=== PATIENT | male | born 1970 | race Caucasian/White ===

== ENCOUNTER 2020-08-19 01:38 | Observation (INO) | payer SELFPAY ==
[~2020-08-19] VITALS: Ht 185.4 cm; Wt 122.4 kg
[2020-08-19] MEDS ORDERED: IV NORMAL SALINE 1000ML BAG 1,000 ML IV ONE (01:45)
[2020-08-19] MEDS ORDERED: KETOROLAC 30 MG/ML VIAL. IVP ONE (02:00)
--- NOTE | 2020-08-19 02:08 | PHYS DOC ---
General Adult EDM: Chief Complaint: ABDOMINAL PAIN HPI: HPI: Patient is a 50 year old male presents with the chief complaint of abdominal pain. Pain is located upper abdomen. Pains is associated nausea without vomiting. Onset of pain this afternoon--- continues without resolution. History of similiar pain in the past but has resolved. Review of Systems: Review of Systems: Constitutional: Denies fever or chills. [] Eyes: Denies change in visual acuity. [] HENT: Denies nasal congestion or sore throat. [] Respiratory: Denies cough or shortness of breath. [] Cardiovascular: Denies chest pain or edema. [] GI: positive abdominal pain, nausea, denies vomiting, bloody stools or diarrhea. [] : Denies dysuria. [] Musculoskeletal: Denies back pain or joint pain. [] Integument: Denies rash. [] Neurologic: Denies headache, focal weakness or sensory changes. [] Endocrine: Denies polyuria or polydipsia. [] Lymphatic: Denies swollen glands. [] Psychiatric: Denies depression or anxiety. [] Heart Score: C/O Chest Pain: N/A Risk Factors: Risk Factors: DM, Current or recent (<one month) smoker, HTN, HLP, family history of CAD, obesity. Risk Scores: Score 0 - 3: 2.5% MACE over next 6 weeks - Discharge Home Score 4 - 6: 20.3% MACE over next 6 weeks - Admit for Clinical Observation Score 7 - 10: 72.7% MACE over next 6 weeks - Early Invasive Strategies Current Medications: Current Medications Medications (Trade) Dose Ordered Sig/Duane Start Time Stop Time Status Last Admin Dose Admin Sodium Chloride 1,000 ml @ 1,000 mls/hr 1X ONCE 08/19/20 01:45 08/19/20 02:44 Allergies: Allergies: Allergies Coded Allergies Type Severity Reaction Last Updated Verified No Known Drug Allergies 08/19/20 No Physical Exam: PE: General: alert, no acute distress. Skin: warm, dry and intact. Head:: Normocephalic, atraumatic. Neck: Trachea midline. Eyes: EOMI, Normal conjunctiva, No drainage CARDIOVASCULAR: Regular rate and rhythm RESPIRATORY: No respiratory distress Back: Full range of motion. MUSCULOSKELETAL: Full range of motion of bilateral upper and lower extremities. GASTROINTESTINAL: Abdomen soft without rebound or guarding. Appears distended tenderness located upper quadrants NEUROLOGICAL: Alert and noted to person, place and time. No neurological deficits observed Psychiatric: Cooperative. Normal judgment EKG: EKG: [] Radiology/Procedures: Radiology/Procedures: [] Course & Med Decision Making: Course & Med Decision Making Pertinent Labs and Imaging studies reviewed. (See chart for details) [] Was evaluated for chief complaint. Work-up consisted of laboratory analysis and radiologic imaging. CT imaging cholelithiasis with gallbladder wall thickening. US ordered and pending. Pain treated with toradol -- improved. Started on zosyn. Admitted to hospitalist--- General Surgery Consult. Eduardo Disclaimer: Eduardo Disclaimer: This electronic medical record was generated, in whole or in part, using a voice recognition dictation system. Departure Departure Impression: Primary Impression: Abdominal pain Disposition: ADMITTED INPT THIS HOSP Condition: STABLE ERICACORDELL Tres BLOOM Aug 19, 2020 02:07
[2020-08-19 02:11] LABS: BASO # 0.1 x10^3/uL (0.0-0.2); BASO % 1 % (0-3); EOS # 0.2 x10^3/uL (0.0-0.7); EOS % 3 % (0-3); HEMATOCRIT 45.2 % (39.0-53.0); HEMOGLOBIN 15.5 g/dL (13.0-17.5); LYMPH # 2.4 x10^3/uL (1.0-4.8); LYMPH % 32 % (24-48); MEAN CORPUSCULAR HEMOGLOBIN 31 pg (25-35); MEAN CORPUSCULAR HGB CONC 34 g/dL (31-37); MEAN CORPUSCULAR VOLUME 91 fL (79-100); MONO # 0.6 x10^3/uL (0.0-1.1); MONO % 8 % (0-9); NEUT % 55 % (31-73); PLATELET COUNT 219 x10^3/uL (140-400); RED BLOOD COUNT 4.99 x10^6/uL (4.30-5.70); RED CELL DISTRIBUTION WIDTH 13.3 % (11.5-14.5); WHITE BLOOD COUNT 7.3 x10^3/uL (4.0-11.0)
[2020-08-19 02:22] LABS: CALCIUM 8.3 mg/dL (8.5-10.1); CREATININE 1.2 mg/dL (0.7-1.3); GFR 64.4; POTASSIUM 4.2 mmol/L (3.5-5.1)
[2020-08-19 02:28] LABS: ALBUMIN 3.3 g/dL (3.4-5.0); TOTAL BILIRUBIN 0.3 mg/dL (0.2-1.0); TOTAL PROTEIN 6.7 g/dL (6.4-8.2)
[2020-08-19] MEDS ORDERED: IOHEXOL 300 MG/ML 100ML VIAL. IV ONE (02:30)
[2020-08-19] MEDS ORDERED: CONTRAST GIVEN. MC PRN (02:30)
--- NOTE | 2020-08-19 03:20 | RAD ---
CT ABDOMEN+PELVIS W History: Reason: abd pain, omni 300, 75 ml iv / Spl. Instructions: / History: Technique: After the administration of intravenous contrast, CT imaging was performed of the abdomen and pelvis. Multiplanar images are reviewed. Exposure: One or more of the following individualized dose reduction techniques were utilized for thi s examination: 1. Automated exposure control 2. Adjustment of the mA and/or kV according to patient size 3. Use of iterative reconstruction technique. Comparison: July 24, 2009 Findings: Lower chest: No consolidation or pleural effusion. Abdomen and pelvis: The liver, spleen, adrenal glands, and pancreas are unremarkable. Normal appearan ce of the kidneys. No hydronephrosis. Normal appearance of the urinary bladder. Cholelithiasis. Mild gallbladder wall thickening. No biliary ductal dilatation. Patent portal veins. Normal appendix. No evidence of bowel obstruction. No pathologic lymphadenopathy. No ascites. Small b ilateral fat-containing inguinal hernias. Mild atheromatous plaque throughout the nonaneurysmal abdom inal aorta and branch vessels. Bones: Multilevel lumbar spondylosis most prominent L5-S1. Impression: 1. Cholelithiasis with mild gallbladder wall thickening. Recommend ultrasound to further evaluate. Electronically signed by: Royer Crane DO (08/19/2020 3:18 AM) [id number]
[2020-08-19] MEDS ORDERED: MORPHINE SULFATE 4 MG/ML VIAL. IV PRN ×2 (03:30→21:45)
[2020-08-19] MEDS ORDERED: ONDANSETRON PF 4 MG/2 ML VIAL. IV PRN (03:30)
[2020-08-19] MEDS ORDERED: PIPERACILLIN/TAZOBACTAM 4.5 GM in IV NORMAL SALINE 100ML 100 ML IV ONE (03:30)
[2020-08-19 04:35] VITALS: BP 140/97
--- NOTE | 2020-08-19 04:53 | RAD ---
US ABDOMEN LTD History: Reason: abnormal ct-- gb wall thickening / Spl. Instructions: / History: Comparison: None. Technique: Transabdominal ultrasound images are obtained of the right upper quadrant. Findings: Liver is increased in echogenicity. Right hepatic lobe measures 18.1 cm. Portal flow is hepatopedal. Cholelithiasis. Gallbladder wall thickening measures 6.7 mm. Mild pericholecystic fluid. Positive son ographic Fagan sign. Common bile duct measures 6.9 mm in diameter. Visualized pancreas not well seen due to overlying bowel gas. The right kidney measures 10.8 x 5.8 x 4.8 cm. No hydronephrosis. Visualized portions of the aorta and IVC have normal caliber. IMPRESSION: 1. Findings concerning for acute cholecystitis. 2. Hepatomegaly with increased echotexture, may indicate steatosis. Electronically signed by: Royer Crane DO (08/19/2020 4:50 AM) [id number]
[2020-08-19 07:00] VITALS: BP 139/99
[2020-08-19] MEDS ORDERED: DEXTROSE 50% 25 GM / 50ML DISP.SYRIN. IV PRN (10:00)
--- NOTE | 2020-08-19 10:33 | NUR ---
SW following. Discussed with RN, pt from home with friend, room air, NPO, rapid COVID-19 negative. Surgery consulted. Med Assist following for self pay status. SW will continue to follow.
[2020-08-19 11:00] VITALS: BP 139/103
--- NOTE | 2020-08-19 11:21 | PDOC2 ---
COREY JENKINS NET DEVELOPER 08/19/20 1121: CONSULT Date of Consult Date of Consult DATE: 08/19/20 TIME: 11:17 Reason for Consult Reason for Consult: cholecystitis Referring Physician Referring Physician: ER Identification/Chief Complaint Chief Complaint abdominal pain Source Source: Chart review, Patient History of Present Illness Reason for Visit: acute onset abdominal pain to upper abdomen yesterday, associated nausea, has happened before, however resolved then. No aggravating factors Currently without pain no constipation or diarrhea Past Medical History Past Medical History denies Past Surgical History Past Surgical History: No pertinent history Family History Family History: Other (noncontributory to current illness ) Social History 1 pack per day ALCOHOL: none Drugs: None Lives: with Family Current Problem List Problem List Problems Medical Problems: (1) Abdominal pain Status: Acute Current Medications Current Medications Current Medications Sodium Chloride 1,000 ml @ 1,000 mls/hr 1X ONCE IV Last administered on 08/19/20at 02:09; Start 08/19/20 at 01:45; Stop 08/19/20 at 02:44; Status DC Ketorolac Tromethamine (Toradol 30mg Vial) 30 mg 1X ONCE IVP Last administered on 08/19/20at 02:10; Start 08/19/20 at 02:00; Stop 08/19/20 at 02:02; Status DC Iohexol (Omnipaque 300 Mg/ml) 75 ml 1X ONCE IV Last administered on 08/19/20at 02:39; Start 08/19/20 at 02:30; Stop 08/19/20 at 02:31; Status DC Info (CONTRAST GIVEN -- Rx MONITORING) 1 each PRN DAILY PRN MC SEE COMMENTS; Start 08/19/20 at 02:30; Stop 08/21/20 at 02:29 Piperacillin Sod/ Tazobactam Sod 4.5 gm/Sodium Chloride 100 ml @ 200 mls/hr 1X ONCE IV Last administered on 08/19/20at 03:41; Start 08/19/20 at 03:30; Stop 08/19/20 at 03:59; Status DC Ondansetron HCl (Zofran) 4 mg PRN Q8HRS PRN IV NAUSEA/VOMITING; Start 08/19/20 at 03:30; Stop 08/20/20 at 03:29 Morphine Sulfate (Morphine Sulfate) 4 mg PRN Q2HR PRN IV PAIN; Start 08/19/20 at 03:30; Stop 08/20/20 at 03:29 Insulin Human Lispro (HumaLOG) 0-5 UNITS TIDWMEALS SQ ; Start 08/19/20 at 12:00 Dextrose (Dextrose 50%-Water Syringe) 12.5 gm PRN Q15MIN PRN IV SEE COMMENTS; Start 08/19/20 at 10:00 Allergies Allergies: Coded Allergies: No Known Drug Allergies (Unverified , 08/19/20) ROS General: No: Chills, Other (fevers ) PSYCHOLOGICAL ROS: No: Anxiety, Depression Eyes: No Blurry vision, No Double vision HEENT: No: Heacaches, Sore Throat Hematological and Lymphatic: No: Bleeding Problems, Blood Clots Respiratory: No: Cough, Shortness of breath Cardiovascular: No Chest Pain, No Palpitations Gastrointestinal: Yes Other (see hpi) Genitourinary: No Dysuria, No Hematuria Musculoskeletal: No Joint Pain, No Muscle Pain Neurological: No Impaired Coord/balance, No Numbness/Tingling Skin: No Pruritus, No Rash Physical Exam General: Alert, Oriented X3, Cooperative HEENT: Atraumatic, PERRLA Lungs: Clear to auscultation Heart: Regular rate, Normal S1, Normal S2 Abdomen: Soft, No tenderness, No hepatosplenomegaly Extremities: No clubbing, No cyanosis Skin: No rashes, No breakdown Psych/Mental Status: Mental status NL, Mood NL MUSCULOSKELETAL: No deformity, No swelling Vitals VITALS Vital Signs Date Time Temp Pulse Resp B/P (MAP) Pulse Ox O2 Delivery O2 Flow Rate FiO2 08/19/20 11:00 97.4 73 18 139/103 (115) 92 Room Air 97.4 Labs Labs Laboratory Tests Test 08/19/20 02:00 08/19/20 03:45 08/19/20 09:44 White Blood Count 7.3 x10^3/uL (4.0-11.0) Red Blood Count 4.99 x10^6/uL (4.30-5.70) Hemoglobin 15.5 g/dL (13.0-17.5) Hematocrit 45.2 % (39.0-53.0) Mean Corpuscular Volume 91 fL (79-100) Mean Corpuscular Hemoglobin 31 pg (25-35) Mean Corpuscular Hemoglobin Concent 34 g/dL (31-37) Red Cell Distribution Width 13.3 % (11.5-14.5) Platelet Count 219 x10^3/uL (140-400) Neutrophils (%) (Auto) 55 % (31-73) Lymphocytes (%) (Auto) 32 % (24-48) Monocytes (%) (Auto) 8 % (0-9) Eosinophils (%) (Auto) 3 % (0-3) Basophils (%) (Auto) 1 % (0-3) Neutrophils # (Auto) 4.0 x10^3/uL (1.8-7.7) Lymphocytes # (Auto) 2.4 x10^3/uL (1.0-4.8) Monocytes # (Auto) 0.6 x10^3/uL (0.0-1.1) Eosinophils # (Auto) 0.2 x10^3/uL (0.0-0.7) Basophils # (Auto) 0.1 x10^3/uL (0.0-0.2) Sodium Level 136 mmol/L (136-145) Potassium Level 4.2 mmol/L (3.5-5.1) Chloride Level 99 mmol/L (98-107) Carbon Dioxide Level 26 mmol/L (21-32) Anion Gap 11 (6-14) Blood Urea Nitrogen 13 mg/dL (8-26) Creatinine 1.2 mg/dL (0.7-1.3) Estimated GFR (Cockcroft-Gault) 64.4 BUN/Creatinine Ratio 11 (6-20) Glucose Level 468 mg/dL (70-99) Calcium Level 8.3 mg/dL (8.5-10.1) Total Bilirubin 0.3 mg/dL (0.2-1.0) Aspartate Amino Transf (AST/SGOT) 23 U/L (15-37) Alanine Aminotransferase (ALT/SGPT) 40 U/L (16-63) Alkaline Phosphatase 149 U/L (46-116) Total Protein 6.7 g/dL (6.4-8.2) Albumin 3.3 g/dL (3.4-5.0) Albumin/Globulin Ratio 1.0 (1.0-1.7) Lipase 90 U/L (73-393) SARS-CoV-2 Antigen (Rapid) Negative (NEGATIVE) Glucose (Fingerstick) 257 mg/dL (70-99) Laboratory Tests Test 08/19/20 02:00 08/19/20 03:45 08/19/20 09:44 White Blood Count 7.3 x10^3/uL (4.0-11.0) Red Blood Count 4.99 x10^6/uL (4.30-5.70) Hemoglobin 15.5 g/dL (13.0-17.5) Hematocrit 45.2 % (39.0-53.0) Mean Corpuscular Volume 91 fL (79-100) Mean Corpuscular Hemoglobin 31 pg (25-35) Mean Corpuscular Hemoglobin Concent 34 g/dL (31-37) Red Cell Distribution Width 13.3 % (11.5-14.5) Platelet Count 219 x10^3/uL (140-400) Neutrophils (%) (Auto) 55 % (31-73) Lymphocytes (%) (Auto) 32 % (24-48) Monocytes (%) (Auto) 8 % (0-9) Eosinophils (%) (Auto) 3 % (0-3) Basophils (%) (Auto) 1 % (0-3) Neutrophils # (Auto) 4.0 x10^3/uL (1.8-7.7) Lymphocytes # (Auto) 2.4 x10^3/uL (1.0-4.8) Monocytes # (Auto) 0.6 x10^3/uL (0.0-1.1) Eosinophils # (Auto) 0.2 x10^3/uL (0.0-0.7) Basophils # (Auto) 0.1 x10^3/uL (0.0-0.2) Sodium Level 136 mmol/L (136-145) Potassium Level 4.2 mmol/L (3.5-5.1) Chloride Level 99 mmol/L (98-107) Carbon Dioxide Level 26 mmol/L (21-32) Anion Gap 11 (6-14) Blood Urea Nitrogen 13 mg/dL (8-26) Creatinine 1.2 mg/dL (0.7-1.3) Estimated GFR (Cockcroft-Gault) 64.4 BUN/Creatinine Ratio 11 (6-20) Glucose Level 468 mg/dL (70-99) Calcium Level 8.3 mg/dL (8.5-10.1) Total Bilirubin 0.3 mg/dL (0.2-1.0) Aspartate Amino Transf (AST/SGOT) 23 U/L (15-37) Alanine Aminotransferase (ALT/SGPT) 40 U/L (16-63) Alkaline Phosphatase 149 U/L (46-116) Total Protein 6.7 g/dL (6.4-8.2) Albumin 3.3 g/dL (3.4-5.0) Albumin/Globulin Ratio 1.0 (1.0-1.7) Lipase 90 U/L (73-393) SARS-CoV-2 Antigen (Rapid) Negative (NEGATIVE) Glucose (Fingerstick) 257 mg/dL (70-99) Assessment/Plan Assessment/Plan cholecystitis abx hyperglycemia--admission BS > 400 currently no pain, ok for clears needs BG management prior to planning OR ADELA DELAROSA MD 08/19/201921: CONSULT Assessment/Plan Assessment/Plan Pt seen and examined. Agree with Ms. Jenkins's note Pt currently without c/o abd soft, ND, NTTP no plans for cholecystectomy currently given pt severe FSBS. Will follow Thanks for consult! COREY JENKINS NET DEVELOPER Aug 19, 2020 11:21 ADELA DELAROSA MD Aug 19, 2020 19:22
[2020-08-19] MEDS: PIPERACILLIN/TAZOBACTAM 3.375 GM in IV NORMAL SALINE 50ML 50 ML IV SCH ×3 (12:03→23:32)
[2020-08-19] MEDS: INSULIN LISPRO 300 UNITS/3 ML VIAL. SQ SCH ×2 (12:07→17:51)
--- NOTE | 2020-08-19 14:08 | HP ---
ADMIT DATE: 08/19/2020 CHIEF COMPLAINT: Abdominal pain. HISTORY OF PRESENT ILLNESS: The patient is a pleasant middle-aged 50-year-old male who presented to the ER last night with abdominal pain. We did some imaging showing he has cholecystitis. He rates his pain at 9/10. He has associated nausea. It has been occurring for several days. He tried increasing his home meds, but that is not working. Interestingly, while he was in the ER, we noticed that his glucose is also 468. I suspect he has new-onset diabetes ____. We are going to consult Surgery, give him IV antibiotics and get his glucose under control. I discussed the case with nurse practitioner for General Surgery. They plan to operate tomorrow once his glucose is better. PAST MEDICAL HISTORY: Overweight. ALLERGIES: None. FAMILY HISTORY: Diabetes. SOCIAL HISTORY: He works in concrete. He does not drink, smoke or take drugs. MEDICATIONS: Reviewed, please refer to the MRAD. REVIEW OF SYSTEMS: GENERAL: No history of weight change, weakness or fevers. SKIN: No bruising, hair changes or rashes. EYES: No blurred, double or loss of vision. NOSE AND THROAT: No history of nosebleeds, hoarseness or sore throat. HEART: No history of palpitations, chest pain or shortness of breath on exertion. LUNGS: Denies cough, hemoptysis, wheezing or shortness of breath. GASTROINTESTINAL: Denies changes in appetite, nausea, vomiting, diarrhea or constipation. He complains of abdominal pain. GENITOURINARY: No history of frequency, urgency, hesitancy or nocturia. NEUROLOGIC: Denies history of numbness, tingling, tremor or weakness. PSYCHIATRIC: No history of panic, anxiety or depression. ENDOCRINE: No history of heat or cold intolerance, polyuria or polydipsia. EXTREMITIES: Denies muscle weakness, joint pain, pain on walking or stiffness. PHYSICAL EXAMINATION: VITALS: Within normal limits and are stable. GENERAL: No apparent distress. Alert and oriented. HEENT: Normal cephalic atraumatic, external auditory canals are patent. EYES: Extraocular muscles are intact, pupils are equally round and reactive to light and accommodation. MUSCULOSKELETAL: Well developed, well nourished, good range of motion. ENDOCRINE: No thyromegaly was palpated. LYMPHATICS: No cervical chain or axillary nodes were noted. HEMATOPOIETIC: No bruising. NECK: Supple, no JVD, no thyromegaly was noted. LUNGS: Clear to auscultation in all lung ledezma without rhonchi or wheezing. HEART: RRR, S1, S2 present. Peripheral pulses intact, no obvious murmurs were noted. ABDOMEN: Soft. He has decreased bowel sounds with tenderness in the upper quadrants. EXTREMITIES: Without any cyanosis, clubbing, or edema. Pedal pulses intact, Homans sign is negative. NEUROLOGIC: Normal speech, normal tone. A and O x 3, moves all extremities, no obvious focal deficits. PSYCHIATRIC: Normal affect, normal mood. Stable. SKIN: No ulcerations or rashes, good skin turgor, no jaundice. VASCULAR: Good capillary refill, neurovascular bundle appears to be intact. LABORATORY DATA: Electrolytes are normal. Glucose is 468. I gave him some sliding scale insulin, now is down to 251. Hematology is normal. Ultrasound shows cholecystitis and hepatic steatosis. ASSESSMENT AND PLAN: Cholecystitis and new-onset diabetes. The patient has been admitted. We will start him on sliding scale insulin, IV Zosyn. Consult General Surgery. He is going to Surgery tomorrow. IV fluids, home meds, DVT prophylaxis. Full code. Diabetic education. PROGNOSIS: Guarded. ANTONI CARRIZALES DO DR: MACIEL/tal JOB#: [id number] / [id number]
[2020-08-19 15:00] VITALS: BP 152/97
[2020-08-19] MEDS: NICOTINE 21MG PATCH. TD SCH (17:37)
[2020-08-19 19:00] VITALS: BP 155/107
[2020-08-19] MEDS ORDERED: hydrALAZINE 20 MG/ML VIAL. IVP PRN (21:45)
[2020-08-19] MEDS ORDERED: ONDANSETRON PF 4 MG/2 ML VIAL. IVP PRN (21:45)
[2020-08-19 23:00] VITALS: BP 162/97
[2020-08-20 03:00] VITALS: BP 127/79
[2020-08-20] MEDS: PIPERACILLIN/TAZOBACTAM 3.375 GM in IV NORMAL SALINE 50ML 50 ML IV SCH (06:09)
[2020-08-20 07:00] VITALS: BP 143/97
[2020-08-20] MEDS: INSULIN LISPRO 300 UNITS/3 ML VIAL. SQ SCH ×2 (08:11→11:57)
--- NOTE | 2020-08-20 08:58 | PDOC ---
COREY JENKINS ENDLESS STEAMER TENDER 08/20/20 0857: SURGICAL PROGRESS NOTE DATE: 08/20/20 TIME: 08:56 Subjective no pain tolerating liquids Vital Signs Vital Signs Date Time Temp Pulse Resp B/P (MAP) Pulse Ox O2 Delivery O2 Flow Rate FiO2 08/20/20 07:00 97.7 94 18 143/97 (112) 93 Room Air 97.7 I&O Intake and Output 08/20/20 07:00 Intake Total 530 ml Balance 530 ml Intake Oral 380 ml IV Total 150 ml # Voids 1 General: Alert, Oriented X3, Cooperative Abdomen: Soft, No tenderness Labs Laboratory Tests Test 08/19/20 02:00 08/19/20 03:45 08/19/20 09:44 08/19/20 11:25 White Blood Count 7.3 x10^3/uL (4.0-11.0) Red Blood Count 4.99 x10^6/uL (4.30-5.70) Hemoglobin 15.5 g/dL (13.0-17.5) Hematocrit 45.2 % (39.0-53.0) Mean Corpuscular Volume 91 fL (79-100) Mean Corpuscular Hemoglobin 31 pg (25-35) Mean Corpuscular Hemoglobin Concent 34 g/dL (31-37) Red Cell Distribution Width 13.3 % (11.5-14.5) Platelet Count 219 x10^3/uL (140-400) Neutrophils (%) (Auto) 55 % (31-73) Lymphocytes (%) (Auto) 32 % (24-48) Monocytes (%) (Auto) 8 % (0-9) Eosinophils (%) (Auto) 3 % (0-3) Basophils (%) (Auto) 1 % (0-3) Neutrophils # (Auto) 4.0 x10^3/uL (1.8-7.7) Lymphocytes # (Auto) 2.4 x10^3/uL (1.0-4.8) Monocytes # (Auto) 0.6 x10^3/uL (0.0-1.1) Eosinophils # (Auto) 0.2 x10^3/uL (0.0-0.7) Basophils # (Auto) 0.1 x10^3/uL (0.0-0.2) Sodium Level 136 mmol/L (136-145) Potassium Level 4.2 mmol/L (3.5-5.1) Chloride Level 99 mmol/L (98-107) Carbon Dioxide Level 26 mmol/L (21-32) Anion Gap 11 (6-14) Blood Urea Nitrogen 13 mg/dL (8-26) Creatinine 1.2 mg/dL (0.7-1.3) Estimated GFR (Cockcroft-Gault) 64.4 BUN/Creatinine Ratio 11 (6-20) Glucose Level 468 mg/dL (70-99) Calcium Level 8.3 mg/dL (8.5-10.1) Total Bilirubin 0.3 mg/dL (0.2-1.0) Aspartate Amino Transf (AST/SGOT) 23 U/L (15-37) Alanine Aminotransferase (ALT/SGPT) 40 U/L (16-63) Alkaline Phosphatase 149 U/L (46-116) Total Protein 6.7 g/dL (6.4-8.2) Albumin 3.3 g/dL (3.4-5.0) Albumin/Globulin Ratio 1.0 (1.0-1.7) Lipase 90 U/L (73-393) Coronavirus (PCR) Not detected (Not Detected) SARS-CoV-2 Antigen (Rapid) Negative (NEGATIVE) Glucose (Fingerstick) 257 mg/dL (70-99) 251 mg/dL (70-99) Test 08/19/20 17:37 08/19/20 20:00 08/20/20 07:09 Glucose (Fingerstick) 186 mg/dL (70-99) 165 mg/dL (70-99) 213 mg/dL (70-99) Laboratory Tests Test 08/19/20 09:44 08/19/20 11:25 08/19/20 17:37 08/19/20 20:00 Glucose (Fingerstick) 257 mg/dL (70-99) 251 mg/dL (70-99) 186 mg/dL (70-99) 165 mg/dL (70-99) Test 08/20/20 07:09 Glucose (Fingerstick) 213 mg/dL (70-99) Problem List Problems Medical Problems: (1) Abdominal pain Status: Acute Assessment/Plan needs better BS control prior to any surgery no pain will advance diet BS management per IPC Justicifation of Admission Dx: Justifications for Admission: Justification of Admission Dx: Yes Diabetic Urgency: Diabetic Urgency ADELA DELAROSA MD 08/20/20 1104: SURGICAL PROGRESS NOTE Assessment/Plan Pt seen and examined. Agree with Ms. Jenkins's note Pt currently denies c/o abd soft, ND, NTTP OK to d/c, f/u in office to consider cholecystectomy pending glucose control COREY JENKINS ENDLESS STEAMER TENDER Aug 20, 2020 08:57 ADELA DELAROSA MD Aug 20, 2020 11:04
[2020-08-20] MEDS: NICOTINE 21MG PATCH. TD SCH (09:24)
--- NOTE | 2020-08-20 09:41 | NUR ---
SW following. Discussed with RN, pt from home with friend, room air, NPO, COVID-19 negative. Pt needing better blood sugar control prior to any surgery. Med Assist following for self pay status. SW will continue to follow.
[2020-08-20 10:48] VITALS: BP 143/96
--- NOTE | 2020-08-20 11:41 | PDOC ---
[employer] PROGRESS NOTE Date of Service DOS: DATE: 08/20/20 TIME: 11:29 Chief Complaint Chief Complaint Abdominal pain History of Present Illness History of Present Illness 08/20 Patient seen and examined Discussed with patient and his mother new diagnosis of Type 2 diabetes and plan to manage Surgery saw patient and believes he is not an appropriate candidate for surgery due to his persistent hyperglycemia but is stable to discharge. Would like to follow-up outpatient to discuss possible cholecystectomy. Discussed with RN Discussed with Social Work Vitals/I&O Vitals/I&O: Vital Signs Date Time Temp Pulse Resp B/P (MAP) Pulse Ox O2 Delivery O2 Flow Rate FiO2 08/20/20 10:48 98.1 92 18 143/96 (112) 92 Room Air 98.1 I & O 08/19/20 08/19/20 08/20/20 15:00 23:00 07:00 Intake Total 0 ml 430 ml 100 ml Balance 0 ml 430 ml 100 ml Physical Exam General: Alert, Oriented X3, Cooperative Heart: Regular rate, Normal S1, Normal S2 Lungs: Clear, Other (No wheezes or crackles) Abdomen: Soft, No tenderness, Other (Obese) Extremities: No clubbing, No cyanosis Skin: No rashes, No breakdown Labs Labs: Laboratory Tests Test 08/19/20 17:37 08/19/20 20:00 08/20/20 07:09 Glucose (Fingerstick) 186 mg/dL (70-99) 165 mg/dL (70-99) 213 mg/dL (70-99) Review of Systems Review of Systems: Reports polyuria and polydipsia. Denies n/v, weakness Assessment and Plan Assessmemt and Plan Assessment Acute cholecystitis Type 2 Diabetes Plan Discharge to home Begin Novolog 5U TID AC Begin Lantus 10U QHS Accucheck with strips Follow-up outpatient with surgery Comment Review of Relevant I have reviewed the following items juliana (where applicable) has been applied. Medications: Current Medications Medications (Trade) Dose Ordered Sig/Duane Route PRN Reason Start Time Stop Time Status Last Admin Dose Admin Insulin Human Lispro (HumaLOG) 0-5 UNITS TIDWMEALS SQ 08/19/20 12:00 08/20/20 08:11 Piperacillin Sod/ Tazobactam Sod 3.375 gm/Sodium Chloride 50 ml @ 100 mls/hr Q6HRS IV 08/19/20 12:00 08/20/20 06:09 Nicotine (Nicoderm Cq 21mg) 1 patch DAILY TD 08/19/20 17:15 08/20/20 09:24 Hydralazine HCl (Apresoline Inj) 10 mg PRN Q4HRS PRN IVP ELEVATED BP, SEE COMMENTS 08/19/20 21:45 08/19/20 21:59 Justifications for Admission Other Justification ANTONI CARRIZALES III DO Aug 20, 2020 11:41
--- NOTE | 2020-08-20 12:02 | DS ---
DATE OF DISCHARGE: 08/20/2020 ADMISSION DIAGNOSES: Cholecystitis and new-onset diabetes. DISCHARGE DIAGNOSES: 1. Resolving cholecystitis. 2. New-onset diabetes and overweight. HOSPITAL COURSE: The patient is a pleasant middle-aged male, who presented with new-onset diabetes with glucose in the high 400s and also had some cholecystitis. His initial complaint was abdominal pain. We admitted the patient. We consulted General Surgery. I got his glucose under control. General Surgery feels he is doing better. The patient clinically is doing well. Today, I saw him and examined him. PHYSICAL EXAMINATION: HEART: Tones are normal. LUNGS: Clear. ABDOMEN: Soft. He is tolerating his diet. We plan to discharge and left in prescriptions for insulin. DISPOSITION: Home. ACTIVITY: As tolerated. DIET: 1800 calorie ADA. MEDICATIONS: I gave him NovoLog Pen 5 units t.i.d. with meals and Lantus Pen 10 units at bedtime. TOTAL TIME: 34 minutes. ANTONI CARRIZALES DO DR: MACIEL/tal JOB#: [id number] / [id number]
--- NOTE | 2020-08-20 12:44 | NUR ---
Patient discharge home with self care today and patient ambulate to car accompanied by this RN and family member. Patient is stable, IV removed, prescriptions and discharge paperwork given to patient. Patient verbalized understanding of follow up and discharge instruction. Patient will call Dr. Dalton to make an appointment
== END 2020-08-20 12:48 | disposition home or self-care (01) ==
LOC: ER 01:38 → 4 NORTH 04:14
PROVIDERS: ADMIT Internal Medicine; ATTEND Internal Medicine
DX: K81.0 Acute cholecystitis (principal); Z20.822 Contact with and (suspected) exposure to COVID-19; E11.65 Type 2 diabetes mellitus with hyperglycemia; E66.3 Overweight; F17.200 Nicotine dependence, unspecified, uncomplicated; Z79.4 Long term (current) use of insulin; Z68.35 Body mass index [BMI] 35.0-35.9, adult
CPT/HCPCS: 36415; 74177; 76705; 80053; 82962; 83690; 85025; 87426; 96361; 96365; 96366; 96372; 96375; 99285; G0378; J0360; J1815; J1885; J2543; J7030; Q9967; U0003; U0005; G0379